=== PATIENT | female | born 1980 | race Caucasian/White ===

== ENCOUNTER → 2016-12-27 | Outpatient (CLI) | payer OTHER ==
[~2016-12-27] MED LIST: ALL180 PO
[2016-12-27 12:33] LABS: C-REACTIVE PROTEIN < 0.29 mg/dl (0-0.29); RHEUMATOID FACTOR < 10.0 U/mL (0-15)
[2016-12-27 13:26] LABS: LYME DISEASE AB IGM NEG (NEG)
[2016-12-27 13:29] LABS: LYME DISEASE AB IGG NEG (NEG)
== END | disposition home or self-care (01) ==
LOC: C.LABBFT 10:11
PROVIDERS: ATTEND Internal Medicine
DX: M79.673 Pain in unspecified foot (principal)

== ENCOUNTER → 2016-12-27 | Outpatient (CLI) | payer OTHER ==
--- NOTE | 2016-12-27 11:29 | DIAGNOSTIC IMAGING REPORT ---
LEFT FOOT MIN 3 VIEWS ROUTINE CLINICAL HISTORY: Left foot pain COMPARISON: None. DISCUSSION: The bony mineralization appears normal. No fractures or dislocations are visualized. There are no erosive or destructive changes. IMPRESSION: No significant bony abnormalities. Electronically signed by: Brody Luevano M.D. 12/27/2016 11:28 AM Dictated Date/Time: 12/27/2016 11:27 AM
--- NOTE | 2016-12-27 11:29 | DIAGNOSTIC IMAGING REPORT ---
RIGHT FOOT MIN 3 VIEWS ROUTINE CLINICAL HISTORY: Right foot pain COMPARISON: None. DISCUSSION: The bony mineralization appears normal. No fractures or dislocations are visualized. There are no erosive or destructive changes. IMPRESSION: No significant bony abnormalities. Electronically signed by: Brody Luevano M.D. 12/27/2016 11:28 AM Dictated Date/Time: 12/27/2016 11:28 AM
== END | disposition home or self-care (01) ==
LOC: C.RAD1850 11:11
PROVIDERS: ATTEND Nurse Practitioner
DX: M79.671 Pain in right foot (principal); M79.672 Pain in left foot